=== PATIENT | male | born 1950 | race Caucasian/White ===

== ENCOUNTER 2022-08-10 11:42 | Outpatient (CLI) | payer MEDICARE, OTHER, SELFPAY ==
[2022-08-10 17:26] LABS: Hepatitis B Surface Antibody Non-Reactive; Syphilis Antibodies Non-reactive
[2022-08-12 05:07] LABS: Hepatitis A AB, Total Negative (Negative)
== END 2022-08-10 23:59 | disposition home or self-care (01) ==
PROVIDERS: PCP Family Medicine; Referring Provider Dermatology; Visit Provider Dermatology
DX: L43.0 Hypertrophic lichen planus (principal)
CPT/HCPCS: 36415; 86706; 86708; 86780

== ENCOUNTER → 2022-09-08 | Outpatient (CLI) | payer MEDICARE, OTHER, SELFPAY ==
[2022-09-08 11:18] LABS: Hepatitis C Antibody Non-Reactive (Nonreactive)
== END | disposition home or self-care (01) ==
LOC: MTLAB 09:24
PROVIDERS: PCP Family Medicine; Referring Provider Dermatology; Visit Provider Dermatology
DX: L43.0 Hypertrophic lichen planus (principal)
CPT/HCPCS: 36415; 86803

== ENCOUNTER → 2024-01-02 | Outpatient (CLI) | payer MEDICARE, OTHER, SELFPAY ==
--- NOTE | 2024-01-02 15:06 | VDLE_ITS ---
Reason For Study: LLE Pain RIGHT LEFT FV is compressible, spontaneous, phasic, GSV is normal. competent and demonstrates normal CFV is compressible, spontaneous, phasic, augmentation. competent, and demonstrates normal Procedure augmentation. This is a venous duplex using B-mode, color FV is compressible, spontaneous, phasic, flow and spectral Doppler. competent and demonstrates normal Exam performed in department. augmentation. The exam was diagnostic. POP V is compressible, spontaneous, phasic, A preliminary report was called and/or faxed competent and demonstrates normal to Ivonne Joel office. augmentation. T/P Trunk is compressible. PTV is compressible. LT PerV is compressible. Nonvascularized area of mixed echoes noted at LT medial knee and Lt Medial Gastrocnemius muscle. VL/Venous Duplex US, Unilateral Interpretation Summary Deep veins of the left lower extremity are patent and compressible segmentally. There is no evidence of left lower extremity deep vein thrombosis. The left great saphenous vein rosamaria ears patent and compressible segmentally. Nonvascularized area of mixed echoes noted at left medial knee and left medial gastrocnemius muscle. Ordering Physician: Ivonne Joel Referring Physician: Ivonne Joel Performed By: Roney Maria RVEla
== END | disposition home or self-care (01) ==
PROVIDERS: PCP Family Medicine; Referring Provider Nurse Practitioner Family; Visit Provider Nurse Practitioner Family
DX: M79.662 Pain in left lower leg (principal)
CPT/HCPCS: 93971